=== PATIENT | female | born 1950 | race Caucasian/White ===

== ENCOUNTER 2020-03-16 06:36 | Inpatient (IN) | payer MEDICARE ==
[~2020-03-16] VITALS: Ht 175.3 cm; Wt 62.6 kg
[~2020-03-16 06:36] MED LIST: ALBUTEROL2.5 MG/0.5 INH; BENTYL 20 MG TA20 M1 PO; SYMBICORT80 MCG/4.1 INH; XANAX 0.5 MG0.5 MG PO
[2020-03-16 06:56] VITALS: BP 136/67
[2020-03-16] MEDS ORDERED: SINGULAIR 10 MG10 M1 PO (07:03)
[2020-03-16 07:41] LABS: ABSOLUTE EOSINOPHILS 0.1 thou/uL (0.0-0.7); ABSOLUTE MONOCYTES 0.4 thou/uL (0.0-1.2); ABSOLUTE NEUTROPHILS 2.7 thou/uL (1.6-8.1); BASOPHILS 0.4 %; EOSINOPHILS 1.5 %; HEMOGLOBIN 13.1 gm/dL (12.0-15.0); LYMPHOCYTES 23.1 %; MCH 32.3 pg (26.0-34.0); MCHC 35.5 g/dL (28.0-37.0); MCV 90.9 fL (80.0-100.0); MONOCYTES 10.3 %; NUCLEATED RBCS 0 /100WBC; PLATELET COUNT* 194 thou/uL (150-400); POLYS 64.7 %; RBC 4.07 mil/uL (4.20-5.00); RDW-CV 12.9 % (10.5-14.5); WBC 4.2 thou/uL (4.0-11.0)
[2020-03-16 07:51] LABS: APTT 26.1 Seconds (25.0-31.3); PROTIME 10.2 Seconds (9.20-11.50)
[2020-03-16 07:54] LABS: CALCIUM 8.3 mg/dL (8.5-10.1); CREATININE 0.5 mg/dL (0.6-1.3); POTASSIUM 3.3 mmol/L (3.5-5.1)
[2020-03-16 08:05] LABS: ALBUMIN 2.8 g/dL (3.4-5.0); MAGNESIUM 1.9 mg/dL (1.8-2.4); TOTAL BILIRUBIN 0.6 mg/dL (<0.1-1.0); TOTAL PROTEIN 6.3 g/dL (6.4-8.2)
[2020-03-16 10:13] LABS: BE 0.1 mmol/L (-2 to +3); PCO2 35.7 mmHg (35.0-45.0); PO2 105.7 mmHg (75.0-100.0); pH 7.442 (7.340-7.450)
--- NOTE | 2020-03-16 10:20 | EKG ---
[place] [address] ELECTROCARDIOGRAM REPORT Name: HENRY PALOMOCE Room: [place] [address] ADM [facility]#: [id number] Admission: 03/16/20 Attend Phys: Jarred Layton, Discharge: Date of : 54 Date of Service: 03/16/20 0645 Report #: [id number] THIS REPORT FOR: //name// [facility] ED Test Date: 2020-03-16 Test Time: 06:45:42 Pat Name: EUNICE PALOMO Department: Room: [facility] Gender: F Vp Project: MR : 1950 Requested By: Austin Lugo Order Number: [id number] MD: David Long Measurements Intervals [place] Rate: 83 P: 6 [place]: 161 QRS: 88 QRSD: 76 T: 45 QT: 344 QTc: 405 Interpretive Statements Sinus rhythm Borderline right axis deviation No previous ECG available for comparison Electronically Signed On 03-16-2020 10:20:39 CDT by David Long [email or web address] <ELECTRONICALLY SIGNED> By: David Long MD, MERGED WITH [facility] 03/16/20 1020 4 David Long MD, MERGED WITH [facility] /EPI
[2020-03-16 12:00] VITALS: BP 112/70
[2020-03-16 14:17] VITALS: BP 109/58
[2020-03-16 14:45] VITALS: BP 110/71
[2020-03-16 20:00] VITALS: BP 120/68
[2020-03-17] VITALS: BP 121/67
[2020-03-17 05:00] VITALS: BP 119/57
[2020-03-17 06:09] LABS: ABSOLUTE LYMPHOCYTES 0.4 thou/uL (0.8-5.3); ABSOLUTE MONOCYTES 0.2 thou/uL (0.0-1.2); ABSOLUTE NEUTROPHILS 2.8 thou/uL (1.6-8.1); BASOPHILS 0.3 %; HEMOGLOBIN 13.5 gm/dL (12.0-15.0); MCHC 34.7 g/dL (28.0-37.0); MCV 92.3 fL (80.0-100.0); MONOCYTES 6.4 %; MPV 7.3 fl. (7.2-11.1); NUCLEATED RBCS 0 /100WBC; PLATELET COUNT* 230 thou/uL (150-400); POLYS 81.3 %; RBC 4.22 mil/uL (4.20-5.00); RDW-CV 12.8 % (10.5-14.5); WBC 3.4 thou/uL (4.0-11.0)
[2020-03-17 06:15] LABS: CALCIUM 8.3 mg/dL (8.5-10.1); CREATININE 0.6 mg/dL (0.6-1.3); POTASSIUM 4.4 mmol/L (3.5-5.1)
[2020-03-17 08:17] VITALS: BP 124/66
[2020-03-17 12:00] VITALS: BP 92/65
[2020-03-17 17:39] VITALS: BP 104/45
[2020-03-17 20:00] VITALS: BP 128/65
[2020-03-18] VITALS: BP 133/65
[2020-03-18 07:50] LABS: HEMATOCRIT 40.4 % (37.0-47.0); HEMOGLOBIN 13.9 gm/dL (12.0-15.0); MCH 32.1 pg (26.0-34.0); MCHC 34.5 g/dL (28.0-37.0); MCV 93.2 fL (80.0-100.0); MPV 7.1 fl. (7.2-11.1); NUCLEATED RBCS 0 /100WBC; PLATELET COUNT* 254 thou/uL (150-400); RBC 4.33 mil/uL (4.20-5.00)
[2020-03-18 08:00] VITALS: BP 134/93
[2020-03-18 08:02] LABS: ALBUMIN 2.7 g/dL (3.4-5.0); CALCIUM 8.4 mg/dL (8.5-10.1); CREATININE 0.7 mg/dL (0.6-1.3); MAGNESIUM 2.3 mg/dL (1.8-2.4); PHOSPHORUS* 3.4 mg/dL (2.5-4.9); POTASSIUM 4.5 mmol/L (3.5-5.1); TOTAL BILIRUBIN 0.4 mg/dL (<0.1-1.0); TOTAL PROTEIN 6.2 g/dL (6.4-8.2)
[2020-03-18 08:15] LABS: ABSOLUTE LYMPHOCYTES 0.7 thou/uL (0.8-5.3); ABSOLUTE MONOCYTES 0.2 thou/uL (0.0-1.2); ABSOLUTE NEUTROPHILS 4.2 thou/uL (1.6-8.1); HYPOCHROMASIA Occasional; PLATELET ESTIMATE ADEQUATE
[2020-03-18 12:00] VITALS: BP 132/74
[2020-03-18 17:00] VITALS: BP 114/61
[2020-03-18 20:00] VITALS: BP 94/52
[2020-03-19 00:12] VITALS: BP 100/49
[2020-03-19 04:45] VITALS: BP 115/55
[2020-03-19 06:45] LABS: ABSOLUTE LYMPHOCYTES 0.3 thou/uL (0.8-5.3); ABSOLUTE MONOCYTES 0.1 thou/uL (0.0-1.2); ABSOLUTE NEUTROPHILS 4.1 thou/uL (1.6-8.1); HEMATOCRIT 39.8 % (37.0-47.0); HEMOGLOBIN 13.8 gm/dL (12.0-15.0); LYMPHOCYTES 5.9 %; MCH 32.3 pg (26.0-34.0); MCHC 34.8 g/dL (28.0-37.0); MCV 92.8 fL (80.0-100.0); MONOCYTES 3.2 %; MPV 7.2 fl. (7.2-11.1); NUCLEATED RBCS 0 /100WBC; PLATELET COUNT* 253 thou/uL (150-400); POLYS 90.9 %; RBC 4.28 mil/uL (4.20-5.00); RDW-CV 13.3 % (10.5-14.5); WBC 4.5 thou/uL (4.0-11.0)
[2020-03-19 06:56] LABS: CALCIUM 8.6 mg/dL (8.5-10.1); CREATININE 0.7 mg/dL (0.6-1.3); MAGNESIUM 2.3 mg/dL (1.8-2.4); POTASSIUM 4.1 mmol/L (3.5-5.1)
[2020-03-19 08:30] VITALS: BP 120/70
[2020-03-19 15:23] VITALS: BP 130/72
[2020-03-19 20:00] VITALS: BP 107/52
[2020-03-20] VITALS: BP 93/49
[2020-03-20 04:00] VITALS: BP 105/62
[2020-03-20 06:30] LABS: ABSOLUTE LYMPHOCYTES 0.3 thou/uL (0.8-5.3); ABSOLUTE MONOCYTES 0.2 thou/uL (0.0-1.2); ABSOLUTE NEUTROPHILS 3.7 thou/uL (1.6-8.1); BASOPHILS 0.1 %; HEMATOCRIT 39.4 % (37.0-47.0); HEMOGLOBIN 13.4 gm/dL (12.0-15.0); LYMPHOCYTES 6.6 %; MCH 31.4 pg (26.0-34.0); MCV 92.4 fL (80.0-100.0); MONOCYTES 5.2 %; MPV 7.4 fl. (7.2-11.1); NUCLEATED RBCS 0 /100WBC; PLATELET COUNT* 245 thou/uL (150-400); POLYS 88.1 %; RBC 4.26 mil/uL (4.20-5.00); RDW-CV 12.8 % (10.5-14.5); WBC 4.2 thou/uL (4.0-11.0)
[2020-03-20 06:45] LABS: CALCIUM 8.7 mg/dL (8.5-10.1); CREATININE 0.6 mg/dL (0.6-1.3)
[2020-03-20 08:45] VITALS: BP 100/48
[2020-03-20 16:45] VITALS: BP 102/48
[2020-03-20 20:00] VITALS: BP 108/56
[2020-03-20 23:34] VITALS: BP 109/55
[2020-03-21 06:04] LABS: ABSOLUTE LYMPHOCYTES 0.3 thou/uL (0.8-5.3); ABSOLUTE MONOCYTES 0.2 thou/uL (0.0-1.2); BASOPHILS 0.2 %; HEMATOCRIT 38.7 % (37.0-47.0); LYMPHOCYTES 8.3 %; MCH 30.9 pg (26.0-34.0); MCHC 33.7 g/dL (28.0-37.0); MCV 91.9 fL (80.0-100.0); MONOCYTES 5.8 %; MPV 7.2 fl. (7.2-11.1); NUCLEATED RBCS 0 /100WBC; PLATELET COUNT* 253 thou/uL (150-400); POLYS 85.7 %; RBC 4.21 mil/uL (4.20-5.00); RDW-CV 13.2 % (10.5-14.5); WBC 3.5 thou/uL (4.0-11.0)
[2020-03-21 06:19] LABS: CALCIUM 8.3 mg/dL (8.5-10.1); CREATININE 0.6 mg/dL (0.6-1.3); POTASSIUM 3.8 mmol/L (3.5-5.1)
[2020-03-21 08:00] VITALS: BP 97/47
[2020-03-21 12:00] VITALS: BP 107/55
[2020-03-21] MEDS ORDERED: NEXIUM40 MG PO (12:30)
[2020-03-21] MEDS ORDERED: ELIQUIS5 MG PO ×2 (12:30→12:33)
[2020-03-21] MEDS ORDERED: DEXAMETHASONE 22 M1 PO (12:33)
[2020-03-21] MEDS ORDERED: LEVOFLOXACIN750 MG PO (12:33)
[2020-03-21 13:00] VITALS: BP 107/55
[2020-03-21 14:39] VITALS: BP 107/55
--- NOTE | 2020-03-24 12:21 | CON ---
[address] [address] CONSULTATION Name: EUNICE PALOMO Room: [address] [facility]#: [id number] Admission: 03/16/20 Attend Phys: Jarred Layton MD Discharge: 03/21/20 Date of : 54 Report #: [id number] THIS REPORT FOR: //name// cc: Ayla Mcdaniel MD, Katrina MD ~ THIS REPORT FOR: //name// CC: Jarred Mcdaniel DATE OF SERVICE: 03/16/2020 CONSULT REQUESTED BY: Jarred Layton MD INDICATION FOR CONSULTATION: COVID-19 and chronic obstructive pulmonary disease exacerbation. HISTORY OF PRESENT ILLNESS: The patient is a 69-year-old old female whose past medical history includes a history of COPD. The patient is on 3 liters oxygen, continuous, at home. The patient is an active smoker. For the last several days, the patient has been having increasing shortness of breath, has been having increasing wheezing over the last couple of weeks as well, has been treated with corticosteroids as an outpatient. The patient, however, failed to improve and her shortness of breath continued to worsen and, therefore, she eventually came to the Emergency Room here. She tested positive for COVID-19 antigen in the Emergency Room. Has been requiring oxygen at 4-6 liters, note that her baseline is 3 liters. She does have a cough. There is not much sputum. There is no chest pain. She does not have upper respiratory complaints. There is no fever or chills. There is no swelling of lower extremities or calf pain. No nausea, vomiting, diarrhea or constipation. REVIEW OF SYSTEMS: The patient answered to the negative for 12 questions for review of systems except as mentioned above. PAST MEDICAL HISTORY: COPD, irritable bowel syndrome, diverticulosis, benign fasciculation syndrome. CURRENT MEDICATIONS: List in [place] reviewed. HOME MEDICATIONS: List in [place] reviewed. FAMILY HISTORY: There is no pertinent family history. SOCIAL HISTORY: She is an active smoker, currently smoking about 4-6 cigarettes a day, has been smoking for several decades and [place] much [place] [address] CONSULTATION Name: EUNICE PALOMO Room: [address] IN [facility].#: [id number] Admission: 03/16/20 Attend Phys: Jarred Layton MD Discharge: 03/21/20 Date of : 54 Report #: [id number] No known history of heavy alcohol use or illegal drug use. ALLERGIES: AMOXICILLIN, BAND-AIDS AND ____ ARE MENTIONED ALLERGIES. PHYSICAL EXAMINATION: GENERAL: She is alert, awake and oriented. She does appear to be short of breath at rest. VITAL SIGNS: She has a pulse of 72 and a blood pressure of 110/71. She did have some accessory muscle use at the time of my evaluation. Her respiratory rate was around 22-24. Most of the respiratory rates documented previously are in the 16-20 range. She is afebrile with a temperature of 36.7. She is saturating 99% on 6 liters nasal cannula. HEENT: Head is normocephalic and atraumatic. NECK: Does not show raised JVP, asymmetry, mass or lymph nodes. CHEST: Symmetrical expansion on inspection and palpation. On auscultation, breath sounds are markedly decreased. Expirations are prolonged. Breath sounds are bilaterally equal. I do not hear any added sounds. HEART: Regular. There is no murmur. ABDOMEN: Soft and nontender. EXTREMITIES: Lower extremities show no edema, no calf tenderness. SKIN: Dry and intact. NEUROLOGICAL: Moves all extremities bilaterally equally and spontaneously with no focal deficit identified. LABORATORY DATA: The patient's chest x-ray is reviewed, it shows changes consistent with COPD. There are small radiopaque densities noted at the right lung base and at the right costophrenic angle, likely scarring and small areas of atelectasis, but infiltrate in this region is not ruled out. ASSESSMENT AND PLAN: 1. COVID-19. Agree with remdesivir as well as dexamethasone. I agree with a larger dose of dexamethasone as ordered as well, considering that she also does appear to be in a chronic obstructive pulmonary disease exacerbation. Covering for possible secondary bacterial infections with Levaquin is also reasonable. 2. Chronic obstructive pulmonary disease exacerbation. Continue with dexamethasone as currently ordered. I do not feel that the patient can probably use an MDI at this time. She is in COPD exacerbation and therefore, needs nebulized bronchodilators. Therefore, I recommend that she be moved over to a negative pressure room and started on nebulized bronchodilators. I discussed with the patient that they could potentially be some benefit in using a BiPAP while asleep as well. The patient says that she finds a BiPAP suffocating and would prefer to avoid using it. Therefore, I did not proceed with the same at this time. 3. Evaluation for thromboembolism. I will check a D-dimer level. If it is elevated, then I will consider further evaluation for thromboembolism. Meanwhile, the patient is on prophylactic dose Lovenox. [address] [address] CONSULTATION Name: EUNICE PALOMO Room: [address] [facility]#: [id number] Admission: 03/16/20 Attend Phys: Jarred Layton MD Discharge: 03/21/20 Date of : 54 Report #: [id number] 4. Remdesivir therapy. Recommend watching liver function tests. The baseline liver function tests have been obtained and are normal. 5. Gastrointestinal prophylaxis, Protonix. 6. Clostridium difficile prophylaxis, Florastor. Thanks for this consultation. <ELECTRONICALLY SIGNED> By: Peter Ruano MD 03/24/20 1221 [id number] Ruano MD /nt
== END 2020-03-21 18:50 | disposition home health service (06) | DRG 871 ==
LOC: M.ERS 06:36 → M.TBA-ER 07:56 → M.2W 07:56
PROVIDERS: Family Medicine; Internal Medicine Critical Care Medicine; ADMIT Internal Medicine; ATTEND Internal Medicine
PROC: XW033E5 Introduction of Remdesivir Anti-infective into Peripheral Vein, Percutaneous Approach, New Technology Group 5 (ICD-10-PCS; principal; 2020-03-16)
DX: A41.89 Other specified sepsis (principal); U07.1 COVID-19; J12.89 Other viral pneumonia; I26.99 Other pulmonary embolism without acute cor pulmonale; J96.21 Acute and chronic respiratory failure with hypoxia; E44.0 Moderate protein-calorie malnutrition; K57.90 Diverticulosis of intestine, part unspecified, without perforation or abscess without bleeding; F17.210 Nicotine dependence, cigarettes, uncomplicated; K58.9 Irritable bowel syndrome, unspecified; J43.9 Emphysema, unspecified; S92.912A Unspecified fracture of left toe(s), initial encounter for closed fracture; X58.XXXA Exposure to other specified factors, initial encounter; Z68.20 Body mass index [BMI] 20.0-20.9, adult; Y93.89 Activity, other specified; Y92.89 Other specified places as the place of occurrence of the external cause; Y99.8 Other external cause status; Z79.899 Other long term (current) drug therapy; Z88.8 Allergy status to other drugs, medicaments and biological substances